=== PATIENT | female | born 1975 | race African-American/Black ===

== ENCOUNTER 2018-08-05 14:24 | Emergency (ER) | payer MEDICARE, MEDICAID ==
[~2018-08-05] VITALS: Ht 162.6 cm; Wt 57.0 kg
[2018-08-05] MEDS ORDERED: SODIUM CHLORIDE 0.9% 500 ML IV ONE (16:30)
[2018-08-05] MEDS ORDERED: ACETAMINOPHEN 325MG TABLET PO ONE (16:30)
[2018-08-05 16:54] LABS: CLARITY URINE CLEAR (CLEAR); COLOR URINE YELLOW (YELLOW); KETONES URINE NEGATIVE (NEGATIVE); LEUKOCYTE ESTERASE URINE NEGATIVE (NEGATIVE); NITRITE URINE NEGATIVE (NEGATIVE); OCCULT BLOOD URINE 3+ (NEGATIVE); PROTEIN URINE NEGATIVE (NEGATIVE); SPECIFIC GRAVITY URINE 1.007 (1.005-1.030); UROBILINOGEN URINE 0.2 E.U./dL (0.2-1.0)
[2018-08-05 17:07] LABS: *AMPHETAMINES SCREEN URINE NEGATIVE (NEGATIVE); *BARBITURATES SCREEN URINE NEGATIVE (NEGATIVE); *BENZODIAZEPINES SCREEN URINE NEGATIVE (NEGATIVE); *COCAINE SCREEN URINE NEGATIVE (NEGATIVE); CANNABINOID URINE SCREEN NEGATIVE (NEGATIVE); METHADONE URINE SCREEN NEGATIVE (NEGATIVE); OPIATES URINE SCREEN NEGATIVE (NEGATIVE); PHENCYCLIDINE URINE SCREEN NEGATIVE (NEGATIVE)
[2018-08-05 17:23] LABS: CHLORIDE 108 mEq/L (98-107)
[2018-08-05 17:28] LABS: ETHANOL BLOOD < 10 mg/dL
[2018-08-05 17:30] LABS: BASOPHILS % 1.5 % (0.0-2.0); EOSINOPHILS % 4.6 % (0.0-5.0); HEMATOCRIT. 24.8 % (36.0-48.0); HEMOGLOBIN. 7.4 g/dL (12.0-16.0); LYMPHOCYTES % 41.8 % (20.0-50.0); MEAN CORPUSCULAR HEMOGLOBIN 18.5 pg (28.0-32.0); MEAN CORPUSCULAR VOLUME 62.6 fL (81.0-99.0); MEAN PLATELET VOLUME 7.8 fl (7.4-10.4); MONOCYTES % 11.1 % (2.0-8.0); PLATELET 442 x1000/uL (130-400); RED BLOOD CELL COUNT 3.97 mill/uL (4.2-5.4); RED CELL DISTRIBUTION WIDTH 22.3 % (11.6-14.6)
[2018-08-05 17:34] LABS: AMMONIA 30 uMol/L (<32)
[2018-08-05 17:46] LABS: PLATELET ESTIMATE INCREASED
[2018-08-05 17:47] LABS: BETA HYDROXYBUTYRATE < 0.1 mMol/L (0.0-0.3)
[2018-08-05] MEDS ORDERED: SODIUM CHLORIDE 0.9% 1,000 ML IV ONE (19:15)
[2018-08-05] MEDS ORDERED: DIPHENHYDRAMINE 25MG CAPSULE PO ONE (22:00)
[2018-08-05] MEDS ORDERED: HYDROCODONE/ACETAMINOPHEN 5/325MG TABLET PO ONE (22:00)
[2018-08-05] MEDS ORDERED: LORAZEPAM 0.5MG TABLET PO ONE (22:00)
[2018-08-06] MEDS ORDERED: HALOPERIDOL 5MG TABLET PO ONE (15:00)
[2018-08-06] MEDS ORDERED: DIPHENHYDRAMINE 25MG CAPSULE PO ONE (23:45)
[2018-08-06] MEDS ORDERED: ZIPRASIDONE MESYLATE 20MG/VIAL IM ONE (23:45)
[2018-08-07] MEDS ORDERED: QUETIAPINE FUMARATE 100MG TABLET ONE (00:07)
[2018-08-07] MEDS ORDERED: MULTIVITAMINS,THER W-MINERALS TABLET PO SCH (07:45)
[2018-08-07 09:00] VITALS: BP 96/76
[2018-08-07] MEDS ORDERED: FERROUS SULFATE 325MG TABLET PO SCH (09:00)
[2018-08-07] MEDS ORDERED: OLANZAPINE 5MG TABLET ODT PO ONE (14:00)
== END 2018-08-07 16:45 | disposition home or self-care (01) ==
LOC: ER 14:24
DX: M79.10 Myalgia, unspecified site (principal); R51 Headache; E86.0 Dehydration; D50.9 Iron deficiency anemia, unspecified; D72.821 Monocytosis (symptomatic); E87.8 Other disorders of electrolyte and fluid balance, not elsewhere classified; E83.51 Hypocalcemia; E88.09 Other disorders of plasma-protein metabolism, not elsewhere classified; N17.0 Acute kidney failure with tubular necrosis; R31.9 Hematuria, unspecified; R82.71 Bacteriuria; F20.9 Schizophrenia, unspecified; D64.9 Anemia, unspecified; F15.10 Other stimulant abuse, uncomplicated; E16.2 Hypoglycemia, unspecified; Z88.0 Allergy status to penicillin
CPT/HCPCS: 36415; 70450; 71045; 80053; 80305; 80307; 81003; 81025; 82010; 82140; 83036; 83735; 83880; 85025; 93005; 96360; 96361; 99285; G0482; J7030; J7040; Q0163

== ENCOUNTER 2020-07-05 14:01 | Emergency (ER) | payer MEDICARE, MEDICAID ==
[~2020-07-05] VITALS: Ht 162.6 cm; Wt 66.0 kg
[2020-07-05] MEDS ORDERED: SODIUM CHLORIDE 0.9% 1,000 ML IV ONE (14:32)
[2020-07-05 15:22] LABS: CHLORIDE 107 mEq/L (98-107)
[2020-07-05 15:24] LABS: HEMATOCRIT. 26.9 % (36.0-48.0); HEMOGLOBIN. 7.8 g/dL (12.0-16.0); MEAN CORPUSCULAR HEMOGLOBIN 17.9 pg (28.0-32.0); MEAN CORPUSCULAR VOLUME 61.3 fL (81.0-99.0); MEAN PLATELET VOLUME 8.6 fl (7.4-10.4); PLATELET 542 x1000/uL (130-400); RED BLOOD CELL COUNT 4.38 mill/uL (4.2-5.4); RED CELL DISTRIBUTION WIDTH 24.1 % (11.6-14.6)
[2020-07-05 15:26] LABS: ETHANOL BLOOD < 10 mg/dL
[2020-07-05] MEDS ORDERED: LORAZEPAM 2MG/ML CPJ IV ONE (16:00)
[2020-07-05] MEDS ORDERED: DIPHENHYDRAMINE 50MG/ML VIAL IM ONE (16:00)
[2020-07-05] MEDS ORDERED: HALOPERIDOL LACTATE 5MG/ML VIAL IM ONE (16:00)
[2020-07-05 16:58] LABS: CLARITY URINE CLOUDY (CLEAR); COLOR URINE DARK YELLOW (YELLOW); KETONES URINE TRACE (NEGATIVE); LEUKOCYTE ESTERASE URINE NEGATIVE (NEGATIVE); NITRITE URINE NEGATIVE (NEGATIVE); OCCULT BLOOD URINE NEGATIVE (NEGATIVE); PH URINE 5.5 (4.5-8.0); PROTEIN URINE TRACE (NEGATIVE); SPECIFIC GRAVITY URINE 1.029 (1.005-1.030)
[2020-07-05 17:18] LABS: METHADONE URINE SCREEN NEGATIVE (NEGATIVE); OPIATES URINE SCREEN NEGATIVE (NEGATIVE); PHENCYCLIDINE URINE SCREEN NEGATIVE (NEGATIVE)
[2020-07-05 17:19] LABS: *BARBITURATES SCREEN URINE NEGATIVE (NEGATIVE); *BENZODIAZEPINES SCREEN URINE NEGATIVE (NEGATIVE); *COCAINE SCREEN URINE NEGATIVE (NEGATIVE)
[2020-07-05 17:24] LABS: *AMPHETAMINES SCREEN URINE PRESUMTIVE POSITIVE (NEGATIVE); CANNABINOID URINE SCREEN PRESUMTIVE POSITIVE (NEGATIVE)
[2020-07-05 18:34] LABS: PLATELET ESTIMATE INCREASED
[2020-07-06 17:00] VITALS: BP 103/69
== END 2020-07-06 18:49 | disposition home or self-care (01) ==
LOC: ER 14:01
DX: F29 Unspecified psychosis not due to a substance or known physiological condition (principal); F20.9 Schizophrenia, unspecified; F22 Delusional disorders; F19.10 Other psychoactive substance abuse, uncomplicated; F17.200 Nicotine dependence, unspecified, uncomplicated; F41.9 Anxiety disorder, unspecified; Z88.3 Allergy status to other anti-infective agents
CPT/HCPCS: 36415; 71045; 80053; 80305; 80307; 80320; 80329; 81003; 81025; 82140; 85025; 93005; 96372; 96374; 99285; J1200; J1630; J2060; J7030; G0480